=== PATIENT | male | born 2000 ===

== ENCOUNTER 2021-01-03 12:39 | Emergency (ER) | payer OTHER, SELFPAY ==
[2021-01-03 12:58] LABS: #Eosinphils 0.1 thou/uL (0.0-0.7); #Lymphocytes 1.6 thou/uL (1.20-3.40); #Monocytes 0.8 thou/uL (0.11-0.59); #Neutrophils 10.5 thou/uL (1.40-6.50); %Basophils 0.3 % (0.0-1.0); %Eosinophils 0.8 % (0.0-10.0); %Lymphocytes 12.1 % (21.0-51.0); %Monocytes 6.2 % (0.0-10.0); %Neutrophils 80.6 % (42.0-75.0); Hemoglobin 14.2 g/dL (14.0-18.0); Mean Corpuscular HGB CONC 35.1 g/dL (32.0-36.0); Mean Corpuscular Hemoglobin 30.4 pg (27.0-31.0); Mean Corpuscular Volume 86.5 fL (78.0-98.0); Mean Platelet Volume 7.6 fL (7.4-10.4); Platelet Count 178 thou/uL (130-400); RBC Distribution Width 11.5 % (11.5-14.5); Red Blood Cell (RBC) Count 4.67 mill/uL (4.70-6.10)
[2021-01-03 13:13] LABS: ALT (SGPT) 13 U/L (8-55); AST (SGOT) 16 U/L (5-34); Albumin 3.7 g/dL (3.5-5.0); Alkaline Phosphatase 92 U/L (40-110); Anion Gap 16 mmol/L (10-20); BUN (Urea Nitrogen) 18 mg/dL (8.9-20.6); Bilirubin, Total 0.3 mg/dL (0.2-1.2); Calc. Creatinine Clearance 0 mL/min (70-130); Calcium 8.5 mg/dL (7.8-10.44); Carbon Dioxide 16 mmol/L (22-29); Chloride 110 mmol/L (98-107); Globulin 2.5 g/dL (2.4-3.5); Glucose 80 mg/dL (70-105); Potassium 3.3 mmol/L (3.5-5.1); Protein, Total 6.2 g/dL (6.0-8.3); Sodium 139 mmol/L (136-145)
[2021-01-03] MEDS ORDERED: Morphine 4 MG/ML VIAL ONE (13:15)
[2021-01-03] MEDS ORDERED: Iopamidol-370 76% 500 ML 1 ML ONE (15:17)
== END 2021-01-03 14:22 | disposition home or self-care (01) ==
LOC: ERS 12:39
DX: S50.12XA Contusion of left forearm, initial encounter (principal); S80.01XA Contusion of right knee, initial encounter; S20.311A Abrasion of right front wall of thorax, initial encounter; V29.9XXA Motorcycle rider (driver) (passenger) injured in unspecified traffic accident, initial encounter
CPT/HCPCS: 36415; 70450; 71260; 72125; 72170; 74177; 80053; 85025; 86850; 86900; 86901; 96374; G0390; J2270; Q9967